=== PATIENT | female | born 1960 | race Caucasian/White ===

== ENCOUNTER → 2018-11-24 | Outpatient (CLI) | payer OTHER ==
--- NOTE | 2018-11-19 08:11 | NUR ---
lmom for pt to call back with list of allergies, pmh and meds.
[~2018-11-24] MED LIST: BIOTIN5000 MCG PO; CALCIUM 600 PLU1 TAB PO; CELEXA 20MG20 MG/TAB PO; MULTI VITAMINS1 TAB PO; PROBIOTIC-MAJOR PO; TURMERIC500 MG PO; VITAMIN B COMPL1 SGL PO
[2018-11-24 06:14] VITALS: BP 139/81; PULSE 62
== END ==
LOC: COL.CARD 05:45
DX: R07.9 Chest pain, unspecified (principal); R00.2 Palpitations; R00.0 Tachycardia, unspecified; R94.39 Abnormal result of other cardiovascular function study
CPT/HCPCS: A9500

== ENCOUNTER → 2019-02-13 | Outpatient (CLI) | payer OTHER | LOC: MC.RAD 07:00 | DX: Z12.31 Encounter for screening mammogram for malignant neoplasm of breast (principal) ==

== ENCOUNTER → 2021-03-13 | Outpatient (CLI) | payer OTHER | LOC: COL.RAD 11:15 | DX: G44.83 Primary cough headache (principal) | CPT/HCPCS: A9585 ==

== ENCOUNTER → 2022-03-14 | Outpatient (CLI) | payer OTHER | LOC: MC.RAD 08:18 | DX: R92.1 Mammographic calcification found on diagnostic imaging of breast (principal) ==